=== PATIENT | female | born 1950 | race Caucasian/White ===

== ENCOUNTER 2018-10-16 05:13 | Day surgery (SDC) | payer OTHER ==
[~2018-10-16 05:13] MED LIST: CYMBALTA60 MG PO; TOPROL XL25 M1 PO
== END 2018-10-16 10:15 | disposition home or self-care (01) ==
LOC: CIR.AMB 05:13
DX: D21.6 Benign neoplasm of connective and other soft tissue of trunk, unspecified (principal)